=== PATIENT | male | born 1990 | race Caucasian/White ===

== ENCOUNTER 2018-06-03 08:38 | Day surgery (SDC) | payer OTHER ==
[2018-06-03] MEDS: LR 1,000 ML IV (08:45)
[2018-06-03] MEDS ORDERED: CIPROFLOXACIN/D5W 400 MG/200 ML BAG (J0744) As Ordered (09:06)
[2018-06-03] MEDS ORDERED: SCOPOLAMINE 1MG TRANSDERMAL PATCH As Ordered (09:08)
[2018-06-03] MEDS: SCOPOLAMINE 1MG TRANSDERMAL PATCH TOP (09:12)
[2018-06-03 09:41] LABS: INR 1.02; PROTHROMBIN TIME 13.5 SECONDS (12.1-14.4)
[2018-06-03 09:42] LABS: PARTIAL THROMBOPLASTIN TIME 28.4 SECONDS (25.4-37.6)
[2018-06-03] MEDS: CIPROFLOXACIN 400 MG in APPROPRIATE DILUENT 1 EA IV (09:45)
[2018-06-03] MEDS ORDERED: PROPOFOL 200 MG/20 ML VIAL As Ordered ×6 (10:53→11:38)
[2018-06-03] MEDS ORDERED: MIDAZOLAM INJ 2 MG/2 ML VIAL (J2250) As Ordered (10:53)
[2018-06-03] MEDS ORDERED: fentaNYL 100 MCG/2 ML INJECTION (J3010) As Ordered (10:53)
[2018-06-03] MEDS: BACITRACIN OINT 30GM As Ordered (11:17)
[2018-06-03] MEDS ORDERED: HYDROmorphone HCL 2 MG/ML 1ML VIAL (J1170) As Ordered (11:27)
[2018-06-03] MEDS ORDERED: fentaNYL 100 MCG/2 ML INJECTION (J3010) IV (12:15)
[2018-06-03] MEDS ORDERED: PERCOCET 5MG/325MG TAB PO (12:15)
[2018-06-03] MEDS ORDERED: HYDROMORPHONE HCL 0.5 MG/ 0.5 ML SYRINGE (J1170 PER 1) IV (12:15)
[2018-06-03] MEDS ORDERED: ONDANSETRON 4MG/2ML VIAL (J2405) IV (12:15)
[2018-06-03] MEDS ORDERED: LR 1,000 ML IV (12:15)
== END 2018-06-03 13:20 | disposition home or self-care (01) ==
LOC: M SDC 08:38
DX: Z30.2 Encounter for sterilization (principal); K21.9 Gastro-esophageal reflux disease without esophagitis; Z88.0 Allergy status to penicillin; Z79.899 Other long term (current) drug therapy; Z87.891 Personal history of nicotine dependence
CPT/HCPCS: 55250

== ENCOUNTER → 2018-06-28 | Outpatient (CLI) | payer OTHER | LOC: M SLEEP HO 12:10 | DX: G47.9 Sleep disorder, unspecified (principal); R40.0 Somnolence | CPT/HCPCS: G0399 ==

== ENCOUNTER → 2022-09-18 | Outpatient (REF) | payer OTHER ==
[~2022-09-18] MED LIST: ACET-683 PO; BACI500O8 TOP; BACTDSTA PO; PERCOCET PO; RANI300T PO
== END ==
LOC: M LAB REF 15:35
PROVIDERS: ATTEND Otolaryngology
DX: H65.21 Chronic serous otitis media, right ear (principal); H66.91 Otitis media, unspecified, right ear